=== PATIENT | female | born 1965 | race Caucasian/White ===

== ENCOUNTER → 2016-06-20 | Day surgery (SDC) | payer BC ==
[~2016-06-20] MED LIST: DEXAMETHASONE SOD PHOSPHATE 4 MG/1 ML VIAL ONE; GUM MASTIC/STORAX/MSAL/ALCOHOL 1 DRP DROPSBTL MC ONE; KETOROLAC TROMETHAMINE 30 MG/1 ML VIAL ONE; LIDOCAINE HCL 1%, 10 MG/ML (20ML VIAL) ONE; LIDOCAINE HCL/PF 2% SDV 5ML VIAL ONE; MIDAZOLAM HCL 2 MG/2 ML SINGLE DOSE VIAL ONE; ONDANSETRON 4 MG/2 ML VIAL ONE; PROPOFOL 20 ML ONE; SUCCINYLCHOLINE CHLORIDE 200 MG/10 ML VIAL ONE; ceFAZolin SODIUM 1 GM VIAL ONE; ePHEDrine SULFATE 50 MG/1 ML AMPULE ONE
--- NOTE | 2016-06-23 15:28 | PATH ---
Surgical Pathology Report Patient Name: DAVID [facility]ROY[facility]. Rec. #: [id number] /Age/Gender: 1965 (Age: 51) / F Account: [id number] Location: [facility] Taken: 06/20/2016 Received: 06/20/2016 Reported: 06/23/2016 Physicians: Charlene Ruiz M.D. Specimen(s) Received RIGHT BREAST CORE BIOPSY 10:00, 10CM FN Clinical History Ultrasound findings: Probably benign Final Diagnosis BREAST, RIGHT, 10:00, 10 CM FN, CORE BIOPSY: MICROPAPILLARY APOCRINE HYPERPLASIA WITH ATYPIA. Electronically Signed Leslye Salas M.D. Gross Description Received in formalin labeled "right breast biopsy 10:00, 10 cmfn," are 3 evans-yellow, cylindrical portions of fibroadipose tissue ranging from 1.0-1.5 cm in length and averaging 0.2 cm in diameter. The specimens are submitted in toto in one cassette. Time to formalin fixation: 2 minutes Total formalin fixation time: Approximately 8 hours 06/20/2016
== END | disposition home or self-care (01) ==
LOC: FRADUS-SUR 12:50
PROVIDERS: ATTEND Surgery
PROC: 0HBT3ZX Excision of Right Breast, Percutaneous Approach, Diagnostic (ICD-10-PCS; principal; 2016-06-20)
DX: N63 Unspecified lump in breast (principal); N60.91 Unspecified benign mammary dysplasia of right breast; N64.89 Other specified disorders of breast
CPT/HCPCS: 19083; 87899; 88305-TC; A4648; G0206-TC

== ENCOUNTER 2016-08-07 06:04 | Day surgery (SDC) | payer BC ==
--- NOTE | 2016-08-04 11:05 | HP ---
Admitting History and Physical - Primary Care Physician PCP: Rosa Quan - Admission Chief Complaint: Right breast DCIS S/P right breast wide excision 07/17/2016 with positve margins History of Present Illness: 51 year old perimenapausal female S/P right breast wide excison showing DCIS intermediate grade with mutiple positive margins. DCIS extends to anterior and inferior cauterized resection margins and is focally < 1.0 mm from medial margin other margins are > 2 mm from DCIS. Her for rexcision of positive margins. History Source: Patient Limitations to Obtaining History: No Limitations - Past Medical History ...LMP: 04/18/15 Psych: Yes: Anxiety - Past Surgical History Past Surgical History: Yes: Bariatric Surgery (gastric sleeve 12/2012), Cholecystectomy (06/2015), Tubal Ligation (07/2001) Additional Past Surgical History: Right breast wide excision for atypia 07/17/2016. Pathology showed DCIS intermediate grade extended to ant and inferior margin and <1mm medial margin - Smoking History Smoking history: Former smoker Have you smoked in the past 12 months: No If you are a former smoker, when did you quit?: SEVEN YEARS AGO - Alcohol/Substance Use Hx Alcohol Use: No Home Medications - Allergies Allergies/Adverse Reactions: Allergies Allergy/AdvReac Type Severity Reaction Status Date / Time No Known Drug Allergies Allergy Verified 07/17/16 09:58 - Home Medications Home Medications: Ambulatory Orders Alprazolam [Xanax] 1 mg PO HS 07/03/16 Doxepin HCl [Sinequan -] 30 mg PO DAILY 07/03/16 Escitalopram Oxalate [Lexapro -] 40 mg PO DAILY 07/03/16 Multivit-Min/Iron/Folic/Lutein [Centrum Silver Women Tablet] 1 each PO DAILY Oxycodone HCl/Acetaminophen [Percocet 5-325 mg Tablet -] 1 - 2 tab PO Q6H #30 tablet MDD 6 07/17/16 Family Disease History - Family Disease History Family Disease History: CA: Mother (bladder cancer) Physical Examination Constitutional: Yes: Anxious Breast(s): Yes: Other (Right breat incision healing well no drainage or erythem or seroma) Problem List - Problems (1) Ductal carcinoma in situ (DCIS) of right breast Code(s): D05.11 - INTRADUCTAL CARCINOMA IN SITU OF RIGHT BREAST Assessment/Plan Right breast reexcision
[2016-08-05 11:29] VITALS: BMI 33.6
[2016-08-07] MEDS ORDERED: LIDOCAINE HCL 1%, 10 MG/ML (20ML VIAL) ONE (07:19)
[2016-08-07] MEDS ORDERED: GUM MASTIC/STORAX/MSAL/ALCOHOL 1 DRP DROPSBTL MC ONE (07:19)
[2016-08-07] MEDS ORDERED: oxyCODONE HCL 5 MG TABLET PO PRN (09:04)
[2016-08-07] MEDS ORDERED: PROMETHAZINE HCL 25 MG/1 ML VIAL IVPUSH PRN (09:04)
[2016-08-07] MEDS ORDERED: LACTATED RINGERS SOLUTION 1,000 ML IV SCH (09:15)
[2016-08-07] MEDS ORDERED: KETOROLAC TROMETHAMINE 30 MG/1 ML VIAL IVPUSH PRN (09:23)
[2016-08-07] MEDS ORDERED: ONDANSETRON 4 MG/2 ML VIAL IVPB PRN (09:23)
[2016-08-07] MEDS ORDERED: DEXTROSE 5%-0.45% SALINE 1,000 ML IV SCH (09:30)
[2016-08-07 10:54] VITALS: TEMP 98.2
[2016-08-07 11:34] VITALS: BP 116/65; PULSE 80
[2016-08-07] MEDS ORDERED: ONDANSETRON 4 MG/2 ML VIAL IVPUSH PRN (11:37)
--- NOTE | 2016-08-11 12:54 | PATH ---
Surgical Pathology Report Patient Name: DAVID ARROYO [facility]. Rec. #: [id number] /Age/Gender: 1965 (Age: 51) / F Account: [id number] Location: [facility] Taken: 08/07/2016 Received: 08/07/2016 Reported: 08/11/2016 Physicians: Rosa Quan M.D. Specimen(s) Received A: RIGHT BREAST INFERIOR MARGIN B: RIGHT BREAST MEDIAL MARGIN C: RIGHT BREAST ANTERIOR MARGIN Clinical History DCIS Final Diagnosis A. BREAST, RIGHT, INFERIOR MARGIN, RE-EXCISION: BENIGN BREAST TISSUE SHOWING PRIOR BIOPSY SITE CHANGES. NO RESIDUAL DUCTAL CARCINOMA IN SITU (DCIS) IS IDENTIFIED. B. BREAST, RIGHT, MEDIAL MARGIN, RE-EXCISION: FOCAL RESIDUAL DUCTAL CARCINOMA IN SITU (DCIS), INTERMEDIATE NUCLEAR GRADE. DCIS IS PRESENT IN TWO OF EIGHT SLIDES (2/8). THE NEW MARGIN IS UNINVOLVED BY DCIS; DCIS IS FOCALLY AT 1 MM FROM THE FINAL NEW MARGIN. C. BREAST, RIGHT, ANTERIOR MARGIN, EXCISION: EXTENSIVE RESIDUAL DUCTAL CARCINOMA IN SITU (DCIS), INTERMEDIATE NUCLEAR GRADE. DCIS IS PRESENT IN SIX OF SEVEN SLIDES (6/7). DCIS IS CLOSE TO (< 1 MM) THE FINAL NEW MARGIN AT A FEW FOCI. Electronically Signed Leslye Salas M.D. Gross Description A. Received in formalin labeled "right breast inferior margin," is a 4.3 x 2.5 x 1.2 cm irregular portion of fibroadipose tissue with a suture marking the final margin, per the surgeon. The final margin is inked green and the specimen is serially sectioned. The specimen is entirely and sequentially submitted in 6 cassettes. B. Received in formalin labeled "right breast medial margin," is a 6.2 x 3.8 x 1.1 cm irregular portion of fibroadipose tissue with a suture marking the final margin, per the surgeon. The final margin is inked green and the specimen is serially sectioned. The specimen is entirely submitted in 8 cassettes. C. Received in formalin labeled "right breast anterior margin," is a 4.4 x 3.3 x 0.8 cm irregular portion of fibroadipose tissue with a suture marking the final margin, per the surgeon. The final margin is inked green and the specimen is serially sectioned. The specimen is entirely and sequentially submitted in 7 cassettes. Time to formalin fixation: 3 minutes Total formalin fixation time: Approximately 33 hours. 08/08/2016 saudi08/08/2016
--- NOTE | 2016-08-28 20:17 | OP ---
DATE OF OPERATION: 08/07/2016 PREOPERATIVE DIAGNOSIS: Right breast ductal carcinoma in situ. POSTOPERATIVE DIAGNOSIS: Right breast ductal carcinoma in situ. PROCEDURE: Reexcision of positive margins. SURGEON: Courtney Quan MD ANESTHESIA: General. ANESTHESIOLOGIST: SPECIMENS: 1. Anterior margin. 2. Inferior margin. 3. Medial margin. DRAINS: None. ESTIMATED BLOOD LOSS: Minimal. INDICATION FOR PROCEDURE: The patient is a 51-year-old woman who had a right breast biopsy, which showed atypia. She was taken to the operating room on July 17, 2016, where she underwent wide excision. Pathology showed DCIS with positive anterior and inferior margins and a close medial margin. After discussion, she opted for reexcision of the margins with the understanding that, if the margins continued to be positive, she would need a mastectomy. The procedure, risks, and complications were discussed with her prior to surgery. PROCEDURE: The patient was identified in the holding area. Informed consent was obtained. The right breast was identified with a marker. She was taken to the operating room and placed on the operating table in the supine position. Sequential compression devices were placed on both legs. She received antibiotics prior to surgery. She was intubated. The right breast was prepped and draped in the usual fashion. The previous incision was opened with a scalpel. The previous biopsy cavity was exposed. A clamp was used to grasp tissue from the anterior margin. This tissue was removed and labeled with a stitch at the biopsy cavity side. Specimens were also taken from the inferior margin and from the medial margin. They were all labeled with a stitch at the biopsy cavity side. They were placed in formalin and sent to Pathology for further examination. The wound was irrigated and inspected for hemostasis. Once hemostasis was achieved, the wound was closed. The deep tissue was closed with interrupted sutures of 3-0 Vicryl. The dermis was closed with interrupted sutures of 3-0 Vicryl. The skin was closed with a running subcuticular closure of 4-0 Monocryl. The wound was cleaned and dressed with a sterile dressing. The patient was awakened and taken to recovery area in satisfactory condition. At the end of the procedure, all sponge, laparotomy, and instrument counts were correct. COURTNEY QUAN M.D. [id number]
== END 2016-08-07 11:20 | disposition home or self-care (01) ==
LOC: FASU 06:04
PROVIDERS: ATTEND Surgery
PROC: 0HBT0ZZ Excision of Right Breast, Open Approach (ICD-10-PCS; principal; 2016-08-07 08:26)
DX: D05.11 Intraductal carcinoma in situ of right breast (principal); F41.9 Anxiety disorder, unspecified; Z87.891 Personal history of nicotine dependence; Z98.84 Bariatric surgery status
CPT/HCPCS: 84703; 88307-TC; 94760

== ENCOUNTER 2016-09-19 08:00 | Inpatient (IN) | payer BC ==
--- NOTE | 2016-10-02 13:34 | HP ---
Admitting History and Physical - Primary Care Physician PCP: Rosa Quan - Admission Chief Complaint: right breast cancer History of Present Illness: 51 yo female underwent a right 10 oclock core bx on 06/2016 which was c/w atypia. Patient then underwent a wide excision of this lesion which was noted to be DCIS with positive margins (07/17/2016). Patient underwent a reexcison of positive margins (08/07) but the final path was c/w extensive DCIS. Patient is now presenting for right mastectomy with snbx, possible andx and MARIA FERNANDA reconstruction. History Source: Patient Limitations to Obtaining History: No Limitations - Past Medical History ...LMP: 04/18/15 Psych: Yes: Anxiety - Past Surgical History Past Surgical History: Yes: Bariatric Surgery (gastric sleeve 12/2012), Cholecystectomy (06/2015), Tubal Ligation (07/2001) - Smoking History Smoking history: Former smoker Have you smoked in the past 12 months: No If you are a former smoker, when did you quit?: SEVEN YEARS AGO - Alcohol/Substance Use Hx Alcohol Use: No Home Medications - Allergies Allergies/Adverse Reactions: Allergies Allergy/AdvReac Type Severity Reaction Status Date / Time No Known Drug Allergies Allergy Verified 07/17/16 09:58 - Home Medications Home Medications: Ambulatory Orders Doxepin HCl [Sinequan -] 30 mg PO DAILY 07/03/16 Escitalopram Oxalate [Lexapro -] 40 mg PO DAILY 07/03/16 Oxycodone HCl/Acetaminophen [Percocet 5-325 mg Tablet] 1 - 2 tab PO Q6H PRN #30 tab MDD 6 08/07/16 Family Disease History - Family Disease History Family Disease History: CA: Mother (bladder cancer) Review of Systems - Review of Systems Constitutional: reports: No Symptoms Cardiovascular: reports: No Symptoms Physical Examination Constitutional: Yes: Well Nourished, Calm (right breast incision clean without discharge or erythema) Assessment/Plan Assessment Right breast cancer Plan right mastectomy with snbx, lymphoscintogram possible andx and MARIA FERNANDA
--- NOTE | 2016-10-02 13:51 | HP ---
History & Physical Update - History History: Change (see notes) (Patient has opted to undergo a bilateral mastectomy with MARIA FERNANDA reconstruction, right snbx, possible andx with lympho) - Plan Plan: No Change (bilateral mastectomy with MARIA FERNANDA reconstruction, right snbx, possible andx with lympho)
[2016-10-07 09:50] VITALS: BMI 33.6
[2016-10-08] MEDS ORDERED: BUPIVACAINE HCL/PF 0.25% (2.5MG/ML) 10 ML VIAL ONE (07:07)
[2016-10-08] MEDS ORDERED: HEPARIN NA (PORCINE) 5,000 UNITS/ML 1ML VIAL ONE (07:07)
[2016-10-08] MEDS ORDERED: LIDOCAINE HCL 4% PRESERVE-FREE 5 ML AMP ONE (07:08)
[2016-10-08] MEDS ORDERED: DESFLURANE GAS 240 ML BOTTLE IH ONE (07:19)
[2016-10-08] MEDS ORDERED: ROCURONIUM BROMIDE 50 MG/5 ML VIAL ONE ×4 (08:03→13:04)
[2016-10-08] MEDS ORDERED: SUCCINYLCHOLINE CHLORIDE 200 MG/10 ML VIAL ONE (08:03)
[2016-10-08] MEDS ORDERED: ePHEDrine SULFATE 50 MG/1 ML AMPULE ONE ×2 (08:03→17:13)
[2016-10-08] MEDS ORDERED: PROPOFOL 20 ML ONE ×8 (08:03→17:29)
[2016-10-08] MEDS ORDERED: MIDAZOLAM HCL 2 MG/2 ML SINGLE DOSE VIAL ONE ×3 (08:03→19:33)
[2016-10-08] MEDS ORDERED: SCOPOLAMINE HYDROBROMIDE 1 PATCH PATCH.TD72 ONE (08:07)
[2016-10-08] MEDS ORDERED: HEPARIN NA (PORCINE) 5,000 UNITS/ML 1ML VIAL SQ ONE (08:25)
[2016-10-08] MEDS ORDERED: ceFAZolin SODIUM 1 GM VIAL IVPB ONE ×2 (08:31→16:30)
[2016-10-08] MEDS ORDERED: LIDOCAINE HCL 4% PRESERVE-FREE 5 ML AMP NR ONE (10:25)
[2016-10-08] MEDS ORDERED: ceFAZolin SODIUM 1 GM VIAL ONE ×2 (12:08→16:41)
[2016-10-08] MEDS ORDERED: BUPIVACAINE HCL/PF 0.25% (2.5MG/ML) 10 ML VIAL IJ ONE ×3 (17:00)
[2016-10-08] MEDS ORDERED: LIDOCAINE HCL 2% 100 MG/5 ML DISP.SYRIN ONE (17:08)
[2016-10-08] MEDS ORDERED: CALCIUM CHLORIDE 1 GM/10 ML *DISP.SYRIN ONE (17:13)
[2016-10-08] MEDS ORDERED: NEOSTIGMINE METHYLSULFATE 0.5 MG/ML - 10 ML MDV ONE (17:27)
[2016-10-08] MEDS ORDERED: ONDANSETRON 4 MG/2 ML VIAL ONE (17:27)
[2016-10-08] MEDS ORDERED: GLYCOPYRROLATE 0.2 MG/1 ML VIAL ONE (17:27)
[2016-10-08] MEDS ORDERED: ESMOLOL HCL 10 ML ONE (17:33)
[2016-10-08] MEDS ORDERED: BACITRACIN 30 GM TUBE TOPICAL OINTMENT ONE (17:49)
[2016-10-08] MEDS ORDERED: ONDANSETRON 4 MG/2 ML VIAL IVPUSH PRN (18:12)
[2016-10-08] MEDS ORDERED: METOCLOPRAMIDE HCL INJECTION 10 MG/2 ML VIAL IVPB PRN (18:12)
[2016-10-08] MEDS ORDERED: PROCHLORPERAZINE MALEATE 25 MG SUPP.RECT PR PRN (18:12)
[2016-10-08] MEDS ORDERED: ZOLPIDEM TARTRATE 5 MG TABLET PO PRN (18:12)
[2016-10-08] MEDS ORDERED: D5-1/2NS+10 MEQ KCL - 1,000 ML IV SCH (18:15)
[2016-10-08] MEDS ORDERED: PROMETHAZINE HCL 25 MG/1 ML VIAL IVPUSH PRN (18:17)
[2016-10-08] MEDS ORDERED: MEPERIDINE HCL CARPU-JECT 25 MG/1 ML DISP.SYRIN IVPUSH PRN (18:21)
--- NOTE | 2016-10-08 18:28 | OP ---
Operative Note - Note: Operative Date: 10/08/16 Pre-Operative Diagnosis: bilateral absence of breasts Operation: Bilateral MARIA FERNANDA flap reconstruction of breasts Implants: none Surgeon: Michael Yu Race Steward: Madhu Aguilar Anesthesia: General Estimated Blood Loss (mls): 400 Drains & Tubes with Location: ELINA x 4
[2016-10-08] MEDS ORDERED: HYDROmorphone HCL CARPU-JECT 2 MG/1 ML DISP.SYRIN ONE (18:29)
[2016-10-08] MEDS: HYDROmorphone HCL CARPU-JECT 1 MG/1 ML DISP.SYRIN IVPUSH PRN ×4 (18:30→19:00)
[2016-10-08] MEDS ORDERED: LACTATED RINGERS SOLUTION 1,000 ML IV SCH ×2 (18:30→19:45)
[2016-10-08] MEDS ORDERED: HYDROmorphone *PCA* 10MG/50ML DISP.SYRIN PCA SCH (18:30)
[2016-10-08] MEDS ORDERED: HYDROmorphone *PCA* 10MG/50ML DISP.SYRIN PCA ONE (19:15)
[2016-10-08] MEDS ORDERED: LORAZEPAM CARPU-JECT 2 MG/ML DISP.SYRIN IVPUSH PRN (19:32)
--- NOTE | 2016-10-08 19:41 | PN ---
Progress Note (short form) - Note Progress Note: Post op check. Patient remains in recovery room. She is having anxiety and tachycardia with no hypostension. ELINA's all low output and functioning. Flaps are soft, warm, with good color and bilateral audible flow signals. I have reviewed the care with the night nurse. Plan for tachycardia is increase hydration to 150/hr LR, versed with PRN ativan. CRIME SPECIALIST pain control. Bedrest overnight.
--- NOTE | 2016-10-08 19:56 | SURG ---
Surgery Road Engineer Freight Note Road Engineer Freight: Britton Vega PA-C Date of Service: 10/08/16 Diagnosis: DO NOT BILL HER INSURANCE COMPANY. Procedure: Called in to assist surgeon with closure of patient s/p bilateral MARIA FERNANDA flap reconstruction of breasts Time in: 15:00 Time out: 18:50 I was present for the entirety of the operative procedure. For further detail, please refer to operative report. Visit type - Case Type Case Type: Elective Cosmetic Proced
--- NOTE | 2016-10-08 22:07 | CONSULT ---
Consult Consult Specialty:: Pulm/CCM Reason for Consultation:: Tachycardia and hypotension post breast surgery - History of Present Illness Chief Complaint: Anxiety and tachycardia - History Source History Provided By: Patient, Medical Record Limitations to Obtaining History: No Limitations - Past Medical History ...LMP: 04/18/15 Psych: Yes: Anxiety - Past Surgical History Past Surgical History: Yes: Bariatric Surgery (gastric sleeve 12/2012), Cholecystectomy (06/2015), Tubal Ligation (07/2001) - Alcohol/Substance Use Hx Alcohol Use: No - Smoking History Smoking history: Former smoker Have you smoked in the past 12 months: No If you are a former smoker, when did you quit?: SEVEN YEARS AGO Home Medications - Allergies Allergies/Adverse Reactions: Allergies Allergy/AdvReac Type Severity Reaction Status Date / Time No Known Drug Allergies Allergy Verified 10/08/16 06:41 - Home Medications Home Medications: Ambulatory Orders Doxepin HCl [Sinequan -] 30 mg PO HS 07/03/16 Citalopram Hydrobromide [Celexa -] 40 mg PO HS 10/07/16 Family Disease History - Family Disease History Family History: Unremarkable Family Disease History: CA: Mother (bladder cancer) Physical Exam Vital Signs: Vital Signs Temperature 98.7 F 10/08/16 18:06 Pulse Rate 108 H 10/08/16 18:20 Respiratory Rate 16 10/08/16 18:20 Blood Pressure 142/62 10/08/16 18:20 O2 Sat by Pulse Oximetry (%) 97 10/08/16 18:20 Constitutional: Yes: No Distress, Calm Eyes: Yes: PERRL HENT: Yes: Normocephalic Neck: Yes: Trachea Midline Cardiovascular: Yes: Tachycardia Respiratory: Yes: CTA Bilaterally Gastrointestinal: Yes: Soft (non tender) Breast(s): Yes: Other (Bilat breast tissue pink with some ecchymoses) Extremities: Yes: WNL Edema: No Peripheral Pulses WNL: Yes Wound/Incision: Yes: Open to air Neurological: Yes: Oriented (Somnolaent) ...Motor Strength: WNL Psychiatric: Yes: Alert, Oriented Assessment/Plan 51yoW with PMHx of right breast CA s/p rt mastectomy with node biopsy and bilat breast reconstruction. Ccb anxiety and tachycardia Plan: OR-Post-op breast reconstruction with arterial doppler monitoring -NC O2 as needed for o2 sat >95% -Monitor perfusion, skin color of reconstructed areas -IVF -Continue Ativan prn for anxiety -Post-op pain management with JORDAN WORKER
[2016-10-08] MEDS: CITALOPRAM HYDROBROMIDE 20 MG TABLET (FP) PO SCH ×2 (22:27→22:32)
[2016-10-08] MEDS: DOXEPIN HCL 10 MG CAPSULE PO SCH ×2 (22:27→22:32)
[2016-10-09] MEDS ORDERED: CEFAZOLIN (PRE-DOCKED) 50 ML IVPB ONE (01:45)
[2016-10-09] MEDS ORDERED: CEFAZOLIN 1 GM/D5W 50 ML IVPB SCH (02:00)
[2016-10-09 06:01] LABS: MCH 28.5 pg (25.7-33.7); MCHC 33.4 g/dl (32.0-36.0); MEAN CELL VOLUME 85.3 fl (80-96); MEAN PLT VOLUME 9.1 fl (7.5-11.1); PLATELET COUNT 198 K/MM3 (134-434); RDW 13.7 % (11.6-15.6); WHITE BLOOD COUNT 10.6 K/mm3 (4.0-10.0)
[2016-10-09 06:28] LABS: CALCIUM 8.2 mg/dL (8.5-10.1)
[2016-10-09 06:30] LABS: COCKROFT - GAULT 111.911; CREATININE 0.8 mg/dL (0.55-1.02)
[2016-10-09] MEDS ORDERED: hydrOXYzine PAMOATE 50 MG CAPSULE (FP) PO PRN ×2 (08:58)
[2016-10-09] MEDS ORDERED: OXYCODONE/APAP 5/325MG COMBO TABLET PO PRN ×2 (08:58)
[2016-10-09] MEDS ORDERED: ACETAMINOPHEN 325 MG TABLET (FP) PO SCH (09:00)
[2016-10-09] MEDS ORDERED: NORMAL SALINE FLUSH 0.9% 2.5 ML SYRINGE IVPUSH SCH (09:00)
[2016-10-09] MEDS ORDERED: D5-1/2NS+10 MEQ KCL - 1,000 ML IV SCH ×2 (09:00→11:15)
--- NOTE | 2016-10-09 09:14 | PN ---
Progress Note (short form) - Note Progress Note: POD 1 All tissues viable with good color and flow signals VSS AF, tachycardia resolved Good UOP with decker Pain well controled, Ruby PO Plan is for progression to POD 1 monitoring, d/c decker, transfer to telemetry, OOB ambulate, no constrictive bra or abdomina binder. Continue CABLE INSTALLER REPAIRER HELPER for today.
[2016-10-09] MEDS ORDERED: ACETAMINOPHEN 325 MG TABLET (FP) PO PRN (09:29)
[2016-10-09] MEDS ORDERED: oxyCODONE HCL 5 MG TABLET PO PRN (09:29)
[2016-10-09] MEDS ORDERED: hydrOXYzine PAMOATE 25 MG CAPSULE (FP) PO PRN ×2 (09:50)
[2016-10-09] MEDS ORDERED: HEPARIN NA (PORCINE) 5,000 UNITS/ML 1ML VIAL SQ SCH ×2 (10:00)
[2016-10-09] MEDS ORDERED: IBUPROFEN 400 MG TABLET (FP) PO SCH (10:00)
[2016-10-09] MEDS ORDERED: CEFAZOLIN (PRE-DOCKED) 50 ML IVPB SCH (10:00)
[2016-10-09] MEDS ORDERED: DOCUSATE SODIUM 100 MG CAPSULE (FP) PO SCH (10:00)
--- NOTE | 2016-10-09 10:55 | OP ---
Operative Note - Note: Operative Date: 10/08/16 Pre-Operative Diagnosis: incarcerated ventral hernia Operation: repair incarcerated ventral hernia Findings: 1.5 cm. defect in the fascia above the umbilicus w/incarcerated preperitoneal fat Surgeon: Trey Al Healthcare Specialist: Britton Vega Anesthesia: General Specimens Removed: hernia sac and fat Estimated Blood Loss (mls): 0
[2016-10-09] MEDS ORDERED: HYDROmorphone *PCA* 10MG/50ML DISP.SYRIN PCA SCH (11:15)
[2016-10-09] MEDS ORDERED: MEPERIDINE HCL CARPU-JECT 50 MG/1 ML DISP.SYRIN IVPUSH PRN (11:15)
[2016-10-09] MEDS ORDERED: METOCLOPRAMIDE HCL INJECTION 10 MG/2 ML VIAL IVPB PRN (11:15)
[2016-10-09] MEDS ORDERED: PROCHLORPERAZINE MALEATE 25 MG SUPP.RECT PR PRN (11:15)
[2016-10-09] MEDS ORDERED: HYDROmorphone HCL CARPU-JECT 1 MG/1 ML DISP.SYRIN IVPUSH PRN (11:15)
[2016-10-09] MEDS ORDERED: ONDANSETRON 4 MG/2 ML VIAL IVPUSH PRN (11:15)
[2016-10-09] MEDS ORDERED: LORAZEPAM CARPU-JECT 2 MG/ML DISP.SYRIN IVPUSH PRN (11:15)
[2016-10-09] MEDS ORDERED: ZOLPIDEM TARTRATE 5 MG TABLET PO PRN (11:15)
--- NOTE | 2016-10-09 11:17 | OP ---
DATE OF OPERATION: 10/08/2016 PREOPERATIVE DIAGNOSIS: Incarcerated ventral hernia. POSTOPERATIVE DIAGNOSIS: Incarcerated ventral hernia. PROCEDURE: Repair of incarcerated ventral hernia. SURGEON: Trey Al MD AUGER SUPERVISOR: Britton Vega PA-C ANESTHESIA: General. OPERATIVE FINDINGS: I was called to the operating room for intraoperative consultation during the creation of bilateral MARIA FERNANDA flaps for breast reconstruction after bilateral mastectomy, and the patient was found to have a midline incarcerated ventral hernia. My opinion was requested about the hernia and for repair. The defect at the fascia was approximately 1.5 cm, and it contained incarcerated preperitoneal fat. Rest of the findings was unremarkable. DESCRIPTION OF PROCEDURE: With the patient already under general anesthesia, the hernia defect was identified. The sac over the hernia was opened using electrocautery, and the incarcerated preperitoneal fat was excised using electrocautery and sent for pathological examination. The defect was closed with multiple 0 Ti-Cron horizontal mattress sutures. The remainder of the procedure was then continued by the plastic surgeons. ESTIMATED BLOOD LOSS: Minimal. DRAINS: None. SPECIMENS: Hernia sac and preperitoneal fat to Pathology. I, Even Nuvia Al, was physically present from the time I was consulted intraoperatively until the completion of the hernia repair. MD MERLY Boothe/[id number]
--- NOTE | 2016-10-09 11:34 | PN ---
Progress Note (short form) - Note Progress Note: Anesthesia postop note S/P Bilateral mastectomy with MARIA FERNANDA, ventral hernia repair in GETA. LEAKAGE TESTER post op. Pat seen and examined. No apparent post anesthesia complications. VSS. Sitting in chair. No complaints. Not in pain. if she is tolerating op intake, will D/C the LEAKAGE TESTER and convert to PO meds.
--- NOTE | 2016-10-09 13:06 | PN ---
Teaching Attending Note Name of Resident: Michell Draper ATTENDING PHYSICIAN STATEMENT I saw and evaluated the patient. I reviewed the resident's note and discussed the case with the resident. I agree with the resident's findings and plan as documented. SUBJECTIVE: Pt seen and examined in the ICU. c/o pain/soreness at surgical site but no shortness of breath or chest pain. No fevers or chills. c/o generalized itching. OBJECTIVE: Last Vital Signs Temp Pulse Resp BP Pulse Ox 99.8 F H 96 H 21 134/48 98 10/09/16 09:55 10/09/16 09:55 10/09/16 09:55 10/09/16 09:55 10/09/16 09:00 Intake & Output 10/06/16 10/07/16 10/08/16 10/09/16 23:59 23:59 23:59 23:59 Intake Total 5450 1730 Output Total 1501.5 851 Balance 3948.5 879 Weight 190 lb Gen: NAD in chair Heart: RRR Lung: decreased breath sounds at the bases Chest: 2 ELINA drains bilaterally with serosanguinous drainage Abd: soft, nontender Ext: no edema CBC, BMP 10/09/16 05:15 10/09/16 05:15 Active Medications Acetaminophen (Tylenol -) 650 mg PO Q6H PRN PRN Reason: Pain, scale 4 - 6 Acetaminophen (Tylenol -) 325 mg PO Q4H PRN PRN Reason: PAIN 1-3 Stop: 10/12/16 09:28 Acetaminophen (Tylenol -) 975 mg PO Q8H KARRIE Citalopram Hydrobromide (Celexa -) 40 mg PO HS KARRIE Diphenhydramine HCl (Benadryl Injection -) 50 mg IVPB Q6H PRN PRN Reason: FOR ITCHING Last Admin: 10/09/16 12:24 Dose: 50 mg Docusate Sodium (Colace -) 100 mg PO BID KARRIE Doxepin HCl (Sinequan -) 30 mg PO HS KARRIE Heparin Sodium (Porcine) (Heparin -) 5,000 unit SQ BID KARRIE Hydromorphone HCl (Dilaudid Green Energy Marketing Analyst -) 10 mg CONTINUITY COORDINATOR CONTINUITY COORDINATOR KARRIE PRN Reason: Protocol Stop: 10/11/16 18:17 Hydromorphone HCl (Dilaudid Injection -) 0.5 mg IVPUSH [id number] PRN PRN Reason: PAIN Stop: 10/11/16 18:18 Hydroxyzine Pamoate (Vistaril -) 50 mg PO Q4H PRN PRN Reason: NAUSEA Hydroxyzine Pamoate (Vistaril -) 50 mg PO Q6H PRN PRN Reason: NAUSEA Cefazolin Sodium (Ancef 1gm Ivpb (Pre-Docked)) 50 mls @ 100 mls/hr IVPB Q8H-IV KARRIE Potassium Chloride/Dextrose/Sod Cl (D5-1/2ns+10 Meq Kcl -) 1,000 mls @ 100 mls/ hr IV ASDIR KARRIE Stop: 10/10/16 08:59 Last Admin: 10/09/16 12:24 Dose: 100 mls/hr Ibuprofen (Motrin -) 800 mg PO Q8H KARRIE Lorazepam (Ativan Injection -) 0.5 mg IVPUSH BID PRN PRN Reason: ANXIETY Meperidine HCl (Demerol Injection -) 25 mg IVPUSH Q8H PRN PRN Reason: SHIVERING Metoclopramide HCl (Reglan Injection -) 10 mg IVPB Q6H PRN PRN Reason: NAUSEA AND/OR VOMITING Ondansetron HCl (Zofran Injection) 4 mg IVPUSH Q6H PRN PRN Reason: NAUSEA AND/OR VOMITING Oxycodone HCl (Roxicodone -) 10 mg PO Q6H PRN PRN Reason: Pain, scale 4 - 6 Oxycodone HCl (Roxicodone -) 5 mg PO Q4H PRN PRN Reason: PAIN 1-3 Prochlorperazine Maleate (Compazine Suppository -) 25 mg [place] Q12H PRN PRN Reason: NAUSEA AND/OR VOMITING Sodium Chloride (Saline Lock Flush) 2.5 ml IVPUSH Q8H KARRIE Zolpidem Tartrate (Ambien -) 5 mg PO HS PRN PRN Reason: INSOMNIA Stop: 10/11/16 18:12 ASSESSMENT AND PLAN: Breast Cancer s/p Right Mastectomy s/p Bilateral MARIA FERNANDA Flap Breast Reconstruction - pain control - incentive spirometry - benadryl for pruritis - monitor H/H - monitor drain output - DVT prophylaxis - can monitor on floor
--- NOTE | 2016-10-09 14:22 | PN ---
Physical Exam: SUBJECTIVE: Patient seen and examined. She is complaining of pain in her chest especially worse when taking deep breaths. She denies headache, dizziness, weakness, N/V, diarrhea, constipation. OBJECTIVE: Vital Signs Period Temp Pulse Resp BP Sys/Irving Pulse Ox Last 24 Hr 98.7 F-99.8 F 96-125 12-21 103-145/45-90 96-100 GENERAL: The patient is awake, alert, and fully oriented, in no acute distress. HEAD: Normal with no signs of trauma. EYES: extraocular movements intact, sclera anicteric, conjunctiva clear. ENT: oropharynx clear without exudates, moist mucous membranes. NECK: Trachea midline, full range of motion, supple. LUNGS: Breath sounds equal, clear to auscultation bilaterally, no wheezes, no crackles, no accessory muscle use. HEART: Regular rate and rhythm, S1, S2 without murmur, rub or gallop. ABDOMEN: Soft, nontender, nondistended, normoactive bowel sounds, no guarding, no rebound, no hepatosplenomegaly, no masses. EXTREMITIES: 2+ pulses, no edema. NEUROLOGICAL: Normal speech, gait not observed. PSYCH: Normal mood, normal affect. SKIN: Warm, dry, normal turgor, no rashes, surgical scar in breast B/L, healing and draining bloody fluid. Laboratory Results - last 24 hr 10/09/16 10/09/16 05:15 05:15 WBC 10.6 H RBC 3.78 Hgb 10.8 Hct 32.2 L MCV 85.3 MCHC 33.4 RDW 13.7 Plt Count 198 MPV 9.1 Sodium 138 Potassium 4.6 Chloride 105 Carbon Dioxide 29 Anion Gap 4 L BUN 17 D Creatinine 0.8 Random Glucose 128 H Calcium 8.2 L Active Medications Generic Name Dose Route Start Last Admin Trade Name Freq PRN Reason Stop Dose Admin Acetaminophen 650 mg 10/09/16 09:27 Tylenol - PO Q6H PRN Pain, scale 4 - 6 Acetaminophen 325 mg 10/09/16 09:29 Tylenol - PO 10/12/16 09:28 Q4H PRN PAIN 1-3 Acetaminophen 975 mg 10/09/16 17:00 Tylenol - PO Q8H KARRIE Citalopram Hydrobromide 40 mg 10/09/16 22:00 Celexa - PO HS KARRIE Diphenhydramine HCl 50 mg 10/09/16 11:20 10/09/16 12:24 Benadryl Injection - IVPB 50 mg Q6H PRN Administration FOR ITCHING Docusate Sodium 100 mg 10/09/16 22:00 Colace - PO BID KARRIE Doxepin HCl 30 mg 10/09/16 22:00 Sinequan - PO HS KARRIE Heparin Sodium (Porcine) 5,000 unit 10/09/16 22:00 Heparin - SQ BID KARRIE Hydromorphone HCl 10 mg 10/09/16 11:15 Dilaudid Clinical Quality Manager - [employer] 10/11/16 18:17 M[employer] SHE[employer]ER KARRIE Protocol Hydromorphone HCl 0.5 mg 10/09/16 11:15 Dilaudid Injection - IVPUSH 10/11/16 18:18 [id number] PRN PAIN Hydroxyzine Pamoate 50 mg 10/09/16 09:50 Vistaril - PO Q4H PRN NAUSEA Hydroxyzine Pamoate 50 mg 10/09/16 09:50 Vistaril - PO Q6H PRN NAUSEA Cefazolin Sodium 50 mls @ 100 mls/hr 10/09/16 18:00 Ancef 1gm Ivpb (Pre-Docked) IVPB Q8H-IV KARRIE Potassium Chloride/Dextrose/Sod Cl 1,000 mls @ 100 mls/hr 10/09/16 11:15 12:24 D5-1/2ns+10 Meq Kcl - IV 10/10/16 08:59 100 mls/hr ASDIR KARRIE Administration Ibuprofen 800 mg 10/09/16 17:00 Motrin - PO Q8H KARRIE Lorazepam 0.5 mg 10/09/16 11:15 Ativan Injection - IVPUSH BID PRN ANXIETY Meperidine HCl 25 mg 10/09/16 11:15 Demerol Injection - IVPUSH Q8H PRN SHIVERING Metoclopramide HCl 10 mg 10/09/16 11:15 Reglan Injection - IVPB Q6H PRN NAUSEA AND/OR VOMITING Ondansetron HCl 4 mg 10/09/16 11:15 Zofran Injection IVPUSH Q6H PRN NAUSEA AND/OR VOMITING Oxycodone HCl 10 mg 10/09/16 09:27 Roxicodone - PO Q6H PRN Pain, scale 4 - 6 Oxycodone HCl 5 mg 10/09/16 09:29 Roxicodone - PO Q4H PRN PAIN 1-3 Prochlorperazine Maleate 25 mg 10/09/16 11:15 Compazine Suppository - [place] Q12H PRN NAUSEA AND/OR VOMITING Sodium Chloride 2.5 ml 10/09/16 17:00 Saline Lock Flush IVPUSH Q8H KARRIE Zolpidem Tartrate 5 mg 10/09/16 11:15 Ambien - PO 10/11/16 18:12 HS PRN INSOMNIA ASSESSMENT/PLAN: 51yoW with PMHx of right breast CA s/p right mastectomy with node biopsy and bilateral breast reconstruction. Ccb anxiety and tachycardia. S/P mastectomy: POD#1 NC O2 as needed for o2 sat >95% monitor perfusion, skin color of reconstructed areas cont IVF Continue Ativan prn for anxiety Post-op pain management with [employer] DVT PPX: -SCDs Disposition: the pt will be transferred to med surg Problem List - Problems (1) Atypical hyperplasia of right breast Code(s): N62 - HYPERTROPHY OF BREAST (2) Ductal carcinoma in situ (DCIS) of right breast Code(s): D05.11 - INTRADUCTAL CARCINOMA IN SITU OF RIGHT BREAST Visit type - Emergency Visit Emergency Visit: Yes ED Registration Date: 10/08/16 Care time: The patient presented to the Emergency Department on the above date and was hospitalized for further evaluation of their emergent condition. - New Patient This patient is new to me today: Yes Date on this admission: 10/09/16 - Critical Care Critical Care patient: Yes Total Critical Care Time (in minutes): 40 Critical Care Statement: The care of this patient involved high complexity decision making to prevent further life threatening deterioration of the patient 's condition and/or to evalute & treat vital organ system(s) failure or risk of failure.
[2016-10-09] MEDS ORDERED: ALPRAZolam 0.25 MG TABLET PO ONE (15:57)
[2016-10-09] MEDS: ACETAMINOPHEN 325 MG TABLET (FP) PO SCH (16:08)
[2016-10-09] MEDS: CEFAZOLIN (PRE-DOCKED) 50 ML IVPB SCH (17:49)
[2016-10-09] MEDS: NORMAL SALINE FLUSH 0.9% 2.5 ML SYRINGE IVPUSH SCH (20:15)
[2016-10-09] MEDS: IBUPROFEN 400 MG TABLET (FP) PO SCH (20:45)
[2016-10-09] MEDS ORDERED: IBUPROFEN 600 MG TABLET (FP) PO ONE (20:45)
[2016-10-09] MEDS ORDERED: PT OWN MED DRAWER 7, Y5N ONE (21:27)
[2016-10-09] MEDS: HEPARIN NA (PORCINE) 5,000 UNITS/ML 1ML VIAL SQ SCH (22:15)
[2016-10-09] MEDS: CITALOPRAM HYDROBROMIDE 20 MG TABLET (FP) PO SCH (22:15)
[2016-10-09] MEDS: DOXEPIN HCL 10 MG CAPSULE PO SCH (22:16)
[2016-10-09] MEDS: DOCUSATE SODIUM 100 MG CAPSULE (FP) PO SCH (22:16)
[2016-10-10] MEDS: IBUPROFEN 400 MG TABLET (FP) PO SCH ×3 (00:55→17:25)
[2016-10-10] MEDS: ACETAMINOPHEN 325 MG TABLET (FP) PO SCH ×3 (00:55→16:18)
[2016-10-10] MEDS: CEFAZOLIN (PRE-DOCKED) 50 ML IVPB SCH ×3 (02:36→17:49)
[2016-10-10] MEDS: NORMAL SALINE FLUSH 0.9% 2.5 ML SYRINGE IVPUSH SCH ×3 (02:37→17:49)
[2016-10-10] MEDS ORDERED: PT OWN MED DRAWER 7, Y5N ONE ×4 (05:41→21:57)
[2016-10-10 06:06] LABS: MCH 28.4 pg (25.7-33.7); MCHC 33.1 g/dl (32.0-36.0); MEAN CELL VOLUME 85.7 fl (80-96); MEAN PLT VOLUME 9.3 fl (7.5-11.1); PLATELET COUNT 183 K/MM3 (134-434); RDW 13.6 % (11.6-15.6); WHITE BLOOD COUNT 10.9 K/mm3 (4.0-10.0)
[2016-10-10 06:42] LABS: CALCIUM 8.2 mg/dL (8.5-10.1); COCKROFT - GAULT 99.4755; CREATININE 0.9 mg/dL (0.55-1.02)
--- NOTE | 2016-10-10 07:39 | PN ---
Progress Note (short form) - Note Progress Note: VSS AF Tissues all viable with good color and flow signals ELINA thin and functioning c/o headaches, but is not eating and refusing pain meds, instructed to eat and combine percocet ad motrin for pain/headache Ambulating Requiring o2 by nc, will try to wean today and plan for discharge tomorrow.
[2016-10-10] MEDS: DOCUSATE SODIUM 100 MG CAPSULE (FP) PO SCH ×2 (09:09→21:53)
[2016-10-10] MEDS: HEPARIN NA (PORCINE) 5,000 UNITS/ML 1ML VIAL SQ SCH ×2 (09:13→21:53)
[2016-10-10] MEDS: CALCIUM CARBONATE 650 MG TABLET PO SCH (09:59)
--- NOTE | 2016-10-10 12:16 | OP ---
DICTATION STARTS HERE The procedure then continued with the right mastectomy. An elliptical incision was made around the areola and extended at 6 o'clock using a scalpel. The skin was grasped with clamps and skin flaps were then raised. A flap was raised superiorly towards the clavicle. The flap was extended medially towards the sternum, inferiorly towards the junction with the abdominal musculature, and laterally towards the axilla. The breast was then removed along with the underlying pectoralis major fascia. The breast was labeled with silk sutures with a long stitch laterally and a short stitch superiorly and placed in formalin. The right axillary sentinel node biopsy was performed by identifying an area of high counts through the skin with the probe and then making an incision in this area. The incision was deepened and dissection into the axillary fat did not show any uptake of the blue dye. However, a firm lymph node was entered, which did not show high counts. This was sent as a permanent specimen. Further dissection revealed a firm node, which was removed and exhibited high counts. Frozen section showed no evidence of metastatic disease. The specimen was sent in formalin for further evaluation. The left mastectomy was performed by Dr. Meyer. The periareolar incision with an extension inferiorly at 6 o'clock was made as in the right breast. Superior, medial, inferior, and lateral flaps were raised as described previously. The breast was removed along with the underlying pectoralis major fascia. The specimen was sent to pathology for permanent section. Both wounds were irrigated and inspected for hemostasis. Once hemostasis was satisfactory, the procedure was turned over to the plastic surgeons to complete the reconstruction. The reconstruction will be dictated as a separate procedure. NILS ART M.D. [id number]
[2016-10-10] MEDS: oxyCODONE HCL 5 MG TABLET PO PRN ×2 (13:58→21:52)
[2016-10-10] MEDS: ACETAMINOPHEN 325 MG TABLET (FP) PO PRN ×2 (14:00→21:52)
[2016-10-10] MEDS: DOXEPIN HCL 10 MG CAPSULE PO SCH (21:51)
[2016-10-10] MEDS: CITALOPRAM HYDROBROMIDE 20 MG TABLET (FP) PO SCH (21:52)
[2016-10-11] MEDS: ACETAMINOPHEN 325 MG TABLET (FP) PO SCH ×2 (02:28→09:46)
[2016-10-11] MEDS: IBUPROFEN 400 MG TABLET (FP) PO SCH ×2 (02:28→09:47)
[2016-10-11] MEDS: CEFAZOLIN (PRE-DOCKED) 50 ML IVPB SCH ×2 (02:35→09:46)
[2016-10-11] MEDS: NORMAL SALINE FLUSH 0.9% 2.5 ML SYRINGE IVPUSH SCH ×2 (02:36→09:46)
[2016-10-11] MEDS: oxyCODONE HCL 5 MG TABLET PO PRN (09:44)
[2016-10-11] MEDS: ACETAMINOPHEN 325 MG TABLET (FP) PO PRN (09:45)
[2016-10-11] MEDS: CALCIUM CARBONATE 650 MG TABLET PO SCH (09:47)
[2016-10-11] MEDS: HEPARIN NA (PORCINE) 5,000 UNITS/ML 1ML VIAL SQ SCH (09:47)
[2016-10-11] MEDS: DOCUSATE SODIUM 100 MG CAPSULE (FP) PO SCH (09:52)
[2016-10-11 12:00] VITALS: BP 144/78; PULSE 99; TEMP 99.9
--- NOTE | 2016-10-11 12:42 | PN ---
Progress Note (short form) - Note Progress Note: POD 3 VSS AF, O2 saturation 94 on room air. Asymptomatic and comfortable. Flaps viable with good arterial flow signals and skin paddle color. Right mastectomy flap with inframedial ischemia- will treat with bacitracin/ Telfa dressing changes BID Ambulating, deepthi PO. Doppler wires cut. Patient ok for discharge with drain care and follow up in 5 days.
--- NOTE | 2016-10-11 17:01 | OP ---
DATE OF OPERATION: 10/08/2016 The procedure is performed as a co-surgeon with Dr. Madhu Aguilar. The procedure is performed as a combination with bilateral mastectomies with a left-sided sentinel lymph node biopsy performed by Dr. Meyer and Dr. Quan. (That portion of the procedure will be dictated by Dr. Meyer and Dr. Quan. ) PROCEDURES PERFORMED: 1. Bilateral breast reconstruction with deep inferior epigastric flake drier artery flaps. 2. Bilateral third rib resection. 3. Bilateral dissection and ligation of superficial inferior epigastric veins. 4. Bilateral intercostal nerve block for postoperative pain relief. 5. Bilateral transversus abdominis pain block for postoperative pain relief. 6. 3-cm complex left axillary wound closure from sentinel lymph node biopsy. PREOPERATIVE DIAGNOSIS: Left breast cancer. POSTOPERATIVE DIAGNOSIS: 1. Left breast cancer 2. Acquired absence of bilateral breasts. ATTENDING SURGEON: Michael Yu MD CO-SURGEON: Madhu Aguilar MD PAYLOADER OPERATOR: TAVO Han ANESTHESIA: General endotracheal anesthesia ESTIMATED BLOOD LOSS FOR THE CASE: 400 mL DESCRIPTION OF THE PROCEDURE: The patient was seen in the holding area. The patient had been evaluated in consult by Dr. Quan and her surgical oncologic team for mastectomy and style of mastectomy after which Dr. Aguilar and I evaluated the patient and marked the patient for microvascular breast reconstruction using abdominal tissue. Patient is awake and aware of incisions and all resulting scars. The abdominal donor site was marked in accordance with a pre-performed MRA to identify the planned perforating vessels for the flaps. Patient was then brought into the operating room, placed in a supine position. RAYN stockings were applied bilaterally. Sequential compression devices were applied bilaterally. The patient was given 5000 units of subcutaneous heparin preoperatively. The patient received a gram of Ancef preoperatively, which was then re-dosed at 6-hour intervals. All pressure points were carefully padded and were checked by surgical and anesthesia teams. Patient was then prepped and draped in a standard surgical fashion. A timeout was called with both oncologic, surgical and plastic surgical teams present. Patient, procedure and side sites were all verified. At this point, the surgeons performed the mastectomies while flap elevation on the abdomen was performed simultaneously. At the abdomen, the previously marked ellipse of tissue from just above the umbilicus down to the pubic hairline, incision was made using a 15-blade scalpel. Dissection was carried down through the subcutaneous tissues using electrocautery, bevelling away from the flap in order to increase the volume of the flap. At the right side, 4 cm off the midline, the superficial inferior epigastric artery and vein were identified and meticulously dissected from all surrounding tissue and traced down to the origin in the groin where they were ligated and divided and kept in continuity with the flap in case they were needed later in the surgery for additional inflow or outflow to the flap. At the left side, the superficial inferior epigastric artery and vein were identified using microsurgical technique. They were meticulously dissected down to their origin in the groin where they were ligated and divided. They were kept in continuity with the left deep inferior epigastric flake drier flap in case they were needed later in the case for additional inflow or outflow to the flap. Attention was first paid to harvest the right deep inferior epigastric flake drier flap. The right MARIA FERNANDA flap was elevated in the [id number] direction using electrocautery until the lateral edge of the rectus abdominis sheath was encountered. At this point, meticulous dissection was continued using bi-polar cautery, and the dominant perforators to this side were identified preoperatively on the MRA, were identified and preserved and kept in continuity with the flap. The anterior rectus fascia was then incised in a superior and inferior direction, and a small cuff of fascia less than 1 cm was kept in continuity with the flake drier and freed from the surrounding tissue. The rectus muscle was atraumatically split in line with its longitudinal fibers, and the flake drier was followed down through the rectus muscle to the lateral main branch of the deep inferior epigastric artery. The perforators were kept in continuity with the flap and dissected in this technique. The main pedicle was then traced back to its origin in the groin where all small branches along the way were clipped and divided in the groin. The takeoff of the deep inferior epigastric artery and vein were identified on the right side. There was noted to be 1 large deep inferior epigastric artery and 2 accompanying large venae comitantes. A single green Acland clamp was applied to the pedicle. Medium atraumatic clamps were placed around the deep inferior epigastric artery and two accompanying veins. They were then divided . The flap was weighed to be 1400 gm. Simultaneously, the left chest exposure of the internal mammary artery and vein were performed. The mastectomy pocket was thoroughly irrigated. All points of bleeding were stopped with electrocautery. The pectoralis major muscle was then divided in line with the longitudinal fibers overlying the 3rd rib. Gelpi retractors were placed for exposure, and the 3rd rib was scored using electrocautery, and the perichondrium surrounding the cartilaginous portion of the 3rd rib was elevated using a periosteal elevator. Then, a 2-cm cartilaginous portion of the rib was removed using a double-action rongeur, and under loupe magnification, the posterior perichondrium was elevated using the same microsurgical technique and bipolar cautery. Meticulous dissection was performed, and the internal mammary artery and vein were identified. The internal mammary artery and vein were freed of surrounding tissue for a total length of 3 cm in order to allow microsurgical anastomosis. The operating microscope was then brought into position on the left side. The right deep inferior epigastric flap was rotated 180 degrees. It was then placed at the right chest. It was secured in position using a 2-0 Vicryl suture for temporary securing, and the pedicle was placed in alignment with the internal mammary artery and vein, and they were traced down to their origin in the groin where they were ligated and divided and kept in continuity with the flap, in case they were needed later in the flap for additional inflow or outflow to the flap. Under the operating microscope, the internal mammary vein had a single green clip applied proximally and a single green clip applied distally. It was divided in the middle of the vein. The lumen was irrigated and measured. It was noted that a 3-mm client associate device would fit well upon the internal mammary vein. The two veins of the flap pedicle were measured, and it was noted that a 2.5-mm client associate would fit on one of the vessels and the other vessel would accommodate a 3-mm client associate. The coupling device was loaded with a 3-mm client associate, which was lowered into the operative field under the operating microscope. The anterior grade vein was brought up through the coupling device. It was everted over the coupling spikes. It was then secured in position using the J-hole, forceps. The lumen was irrigated with heparinized saline solution, and the client associate was lowered adjacent to the anterior grade portion of the internal mammary vein, which was then brought up through the coupling device, everted over the coupling spikes and secured in position using the J-hole, then irrigated with heparinized saline solution. It was noted to be in good position and free of debris. The client associate was closed, creating a secured couple anastomosis. The green clamp was removed, and there was noted to be excellent flow across the anastomosis. Attention was then paid to the retrograde vein. The second vein of the pedicle was then brought up through the 2.5-mm client associate. It was everted over the coupling spikes and was secured in position using the J-hole. The client associate was then lowered adjacent to the retrograde internal mammary vein, the cut end of which was brought up through the coupling device, everted over the coupling spikes and secured in position using a J-hole. The lumens were irrigated and noted to be free of debris and in good position. The client associate was then closed and secured. A couple anastomosis was performed. The single green clamp was removed, and there was noted to be excellent flow across the anastomosis. Attention was then paid to the arterial anastomosis. The pedicled artery was placed in alignment with the internal mammary artery. The internal mammary artery had a single green clamp applied proximally, and the medium atraumatic clamp clip applied distally, and it was divided. The lumen was irrigated and noted to be free of debris and healthy in appearance. The artery of the flap pedicle was then placed in alignment with the internal mammary artery, and a hand-sewn anastomosis was performed. 8-0 nylon was used in an interrupted fashion. The single green clamp was then removed from the artery, and there was noted to be excellent flow across the anastomosis. The pedicle was interrogated with a hand-held Doppler, and there was noted to be pulsatile flow. The flow had a strong biphasic sound. Using the hand-held Doppler, there was noted to be good flow. At this point, an implantable Doppler was placed for monitoring on the flap postoperatively. Using the Jefferson dissector, a small window was created in the pedicle of the artery. The cuff of the implantable Doppler was passed around this. It was secured in position using micro-clips and hooks to the Doppler box where there was noted to be a strong bounding signal within the pedicle artery. This was left attached to the Doppler box and monitored throughout the entirety of the rest of the case, and there was excellent flow throughout the rest of the case. The operating microscope was removed. The flap was gently was gently placed within the mastectomy pocket while monitoring the entire time. There was noted to be excellent shape to the flap, and the skin was temporarily closed using skin alfredo. Attention was then paid to the contralateral side. At the left abdomen, the deep inferior epigastric flake drier flap was elevated in the [id number] direction using electrocautery until the lateral free edge of the rectus was encountered, then with loupe magnification, two dominant perforators were identified as were seen on the MRA. They were circumferentially freed. An incision was made in the anterior rectus fascia in a [id number] direction. A small cuff of fascia was kept adherent to the perforators approximately 1 cm in size. The perforators were then followed down to the rectus muscle, freeing all small branches. As necessary, the rectus muscle was atraumatically split using Gelpi retractors. The perforators were traced down to the left anterior- inferior epigastric artery pedicle. The pedicle was then traced down to its origin in the groin, clipping and dividing all small branches, as necessary. At the groin, there was noted to be 1 large artery and 2 large veins. These were clipped with medium atraumatic clip shirt cleaner and divided. The flap was weighed and noted to be 1400 gm. Simultaneous to this, dissection at the right chest exposure to the internal mammary artery and vein was performed. The mastectomy pocket was irrigated. All points of bleeding were stopped with electrocautery. The pectoralis major muscle was divided overlying the 3rd rib in line with the longitudinal fibers. The underlying 3rd rib was exposed. The perichondrium was scored using electrocautery and freed using a periosteal elevator. Then, a 2 cm cartilaginous portion of the rib was resected using a large rongeur. Under loupe magnification, the posterior perichondrium was elevated, and the internal mammary artery and vein were identified. Small branches were divided, and the internal mammary artery and vein were exposed for a length of 3 cm in order to allow surgical anastomosis. The left deep inferior epigastric flake drier flap was then rotated 180 degrees. It was placed at the left chest and temporally secured in position using 2-0 Vicryl sutures. The pedicle of the flap was placed in alignment with the internal mammary artery and vein. The operating microscope was brought into position. Under the operating microscope, attention was then first paid to the venous anastomosis of the internal mammary vein, and a clip applied distally and a green clamp applied proximally. It was then divided. The lumen was measured to be 3 mm. The pedicle was measured to also be 3 mm. A coupling device was loaded with the 3-mm client associate. It was lowered into the operative field under the operating microscope. The cut end of the pedicle vein was then brought through the client associate, everted over the coupling spike, secured in position using the J-hole. The lumen was then irrigated with heparinized saline and heparinized saline solution. It was noted to be in good position and free of debris. The client associate was then lowered adjacent to the internal mammary vein. The antegrade portion of the cut end was brought up and through the coupling device, everted over the coupling spikes, secured in position using the J-hole and irrigated with heparinized saline, and noted to be free of debris and in good position. The client associate was then closed, creating a secured couple anastomosis. The green clamp was removed, and there was noted to be excellent flow across the venous anastomosis. Attention was then paid to the retrograde venous anastomosis where the coupling device was then lowered into the field loaded with a 2.5-mm client associate. The smaller vein of the pedicle was then brought through the coupling device and everted over the coupling spikes. The retrograde internal mammary vein was then brought through the other side of the coupling device, everted over the coupling spikes. The coupling device was then brought together. A secure couple anastomosis was achieved. The green clamp was removed, and good flow through the venous anastomosis was shown. Attention was then paid to the arterial anastomosis, and the internal mammary artery had a medium clip applied, the distal end of a single green Acland clamp applied proximally. It was then divided. The lumen was irrigated and noted to be free of debris and healthy in appearance. The pedicled artery was placed in alignment with the internal mammary artery, and a hand-sewn anastomosis was performed using 8-0 nylon suture in interrupted fashion. After completion of the hand-sewn anastomosis, the green clamp was removed, and there was noted to be excellent strong pulsatile flow across the arterial anastomosis in a bounding pedicle. The pedicle was interrogated using a hand-held Doppler, was noted to have strong, healthy pulsatile flow. The implantable Doppler was then placed. A [employer] dissector was used to create a window in the pedicle, and the [employer] implantable Doppler cuff was then passed around and secured in position using micro-clips. The Doppler was hooked to the Doppler box and noted to have a strong, pulsatile flow. This was monitored through the entirety of the rest of the case. Operating microscope was then removed from the field. The flap was gently placed within the mastectomy cavity. The skin incisions were temporarily closed with skin alfredo, and there was noted to be excellent shape and symmetry between the right and left breast. Attention was then paid toward the closure of the right and left side. Bilaterally, the lateral edge of the mastectomy wound is re-created, using a series of interrupted 2-0 Vicryl sutures to create better projection. The lateral edge of the flaps are secured to the chest wall and folded upon themselves. Excess tissue is resected. The mastectomy weights were roughly 900 gm. The flaps were 1400 gm. 500 gm were removed from each of the flaps, and zone 2 of the flaps, preserving the superficial and inferior epigastric artery and vein. The placement of the skin paddle is marked. The flap is de-epithelialized with the exception of the skin paddle. The skin of the mastectomy wound is trimmed to have a vertical mastopexy type of closure, trimming any of the free edges of the mastectomy wound. Good bright red bleeding is seen through the edges of the mastectomy skin. The inferior vertical limb is closed to itself, leaving space for the Doppler wire to be brought out through the inferior-most aspect of the incision. The Doppler wire is secured using the securing plastic device on the chest wall. Size 19 round Amari drains were brought out through lateral stab wound incisions, secured with 3-0 silk drain sutures. The drain is placed away from the pedicle anastomosis. The flap is then inset with Steri-Strips and buried subcuticular 3-0 Monocryl suture around the skin paddle following by running subcuticular 3-0 Monocryl suture, the vertical limbs of the skin are closed with Steri-Strips and buried 3-0 Monocryl suture followed by a running subcuticular 3-0 Monocryl suture. The inset is performed identically, both on the right and left. Attention was then directed toward closure of the abdomen. On the right and left side prior to closure, an intercostal nerve block was performed using 0.25% Marcaine. 15 mL of 25% Marcaine was used on the left, and 15 mL was used on the right, injecting a small amount of Marcaine adjacent to the intercostal nerve root space 2 through 7 in order to provide postoperative pain relief. Prior to closure of the abdomen, bilateral transversus abdominis nerve blocks were performed using 0.25% Marcaine. 15 mL of Marcaine were introduced through multiple injections of the transverse abdominis plane on the left and right side in order to provide postoperative pain relief. Closure of the abdomen was then performed, first of the anterior rectus fascia including both anterior and posterior layers of the anterior rectus abdominis fascia. The anterior rectus fascia were approximated using a 0 PDS suture in a figure-of-8 fashion with 1 suture placed every centimeter, approximating the fascia. This was overrun with a 0, V-Loc PDS suture in multiple layers in order to apply gate and strength in the closure in the epigastric area. There was noted prior to closure to be a small abdominal midline hernia. For this, the general surgeon, Dr. Trey Al is called into the operating room to perform an incidental hernia repair. That portion of the procedure is to be dictated separately by Dr. Al. After completion of the repair of the abdominal hernia, the remainder of the abdominal wound incision is able to be closed. A subcutaneous flap was then advanced in the inferior direction. A low transverse incision was then closed in multiple layers using 0 PDS as the first layer, 3-0 V-Loc as the running final subcuticular closure. The umbilicus was then brought up and out through and inverted V-shape incision, insetting using a 4-0 Monocryl suture. After closure, all the incisions were dressed with Steri-Strips sterilely. No additional dressings were applied. The patient was awoken from anesthesia in a flexed position, having tolerated the procedure well and transferred to recovery without complication. Good flow signals, flap color were able to be identified both in the operating room and the postoperative recovery radha. The patient tolerated the procedure well. Charlene [id number]
--- NOTE | 2016-10-13 16:20 | PATH ---
Surgical Pathology Report Patient Name: DAVID ARROYO [facility]. Rec. #: [id number] /Age/Gender: 1965 (Age: 51) / F Account: [id number] Location: 4 SO PEDS/ADOL Taken: 10/08/2016 Received: 10/08/2016 Reported: 10/13/2016 Physicians: Charlene Valdez Specimen(s) Received A: RIGHT AXILLARY SENTINEL LYMPH NODE B: RIGHT AXILLARY LYMPH NODE C: LEFT BREAST, MASTECTOMY D: RIGHT BREAST, MASTECTOMY E: HERNIA SAC & FAT Clinical History Right breast cancer Intraoperative Consult Diagnosis A. Right axillary lymph node, touch prep and frozen section: One lymph node, negative for carcinoma. Dr. Bell, 10/08/16. Final Diagnosis A. SENTINEL LYMPH NODE, RIGHT AXILLARY, BIOPSY: ONE LYMPH NODE NEGATIVE FOR METASTATIC CARCINOMA BY H&E STAIN (0/1). B. LYMPH NODE, RIGHT AXILLARY, LYMPHADENECTOMY: FOUR LYMPH NODES NEGATIVE FOR METASTATIC CARCINOMA (0/4). C. BREAST, LEFT, MASTECTOMY: FIBROCYSTIC CHANGE WITH DUCT DILATATION, FOCAL ADENOSIS AND STROMAL FIBROSIS. BENIGN NIPPLE AND SKIN. Comment: Immunohistochemical stain for p63 and SMM-HC performed and interpreted at [facility] on block C12 show preserved myoepithelial cells supporting the interpretation above. D. BREAST, RIGHT, MASTECTOMY: DUCTAL CARCINOMA IN SITU (DCIS), INTERMEDIATE NUCLEAR GRADE, APOCRINE, MICROPAPILLARY TYPE, WITH CENTRAL NECROSIS, CALCIFICATIONS AND PERIDUCTAL SCLEROSIS, PRESENT ON ONE SLIDE (SEE COMMENT). SURGICAL RESECTION MARGINS: NEGATIVE FOR DCIS; DCIS IS MORE THAN 1 CM AWAY FROM THE DEEP AND ANTERIOR SOFT TISSUE MARGINS. NIPPLE: NOT INVOLVED BY DCIS; BENIGN SKIN. EXTENSIVE PRIOR SURGICAL SITE CHANGES. SURROUNDING BREAST TISSUE: FIBROCYSTIC CHANGE WITH ADENOSIS, DUCT DILATATION, CYST FORMATION STROMAL FIBROSIS WITH ASSOCIATED MICROCALCIFICATIONS. Comment: Prior excision and re-excision specimens (D17-416 and D17-504) showed ductal carcinoma in situ (DCIS), intermediate nuclear grade, extending to the initial resection margins and into some of the margins in the re-excision specimen. The current specimen shows focal DCIS with similar morphology. The sampled lymph nodes are negative. Refer to D17-416 for the receptor studies. Immunohistochemical stain for p63 and SMM-HC performed and interpreted at [facility] on block D14 show preserved myoepithelial cells supporting the interpretation above. E. HERNIA SAC AND FAT: BENIGN FIBROMEMBRANOUS TISSUE AND BENIGN FATTY TISSUE. Electronically Signed Wily Bell M.D. Gross Description A. Received fresh, labeled "right axillary lymph node" is a 2.1 x 1.5 x 1.2 cm fragment of evans-yellow fibrofatty tissue, which is dissected to reveal a 1.7 x 0.8 x 0.5 cm evans-red lymph node. The lymph node is bisected, one touch prep and one frozen section are performed. The frozen section residue is submitted entirely in one cassette. B. Received in formalin labeled "axillary lymph node (right)" are 4 evans lymph nodes ranging from 0.5-2.5 cm in greatest dimension. The specimens are entirely submitted in 2 cassettes as follows: 1-three whole lymph nodes, 2-one whole lymph node. C. Received in formalin, labeled "left breast 1133 g" is a 20.0 x 16.5 x 6.0 cm left mastectomy specimen with a short suture marking the superior aspect and a long suture marking the lateral aspect of the specimen, per the surgeon. The anterior surface displays a 5.4 x 3.0 cm evans, ovoid portion of skin with a 1.1 cm in diameter nipple. The deep margin is inked black and the anterior soft tissue margin is inked blue. The specimen is serially sectioned from medial to lateral. Sectioning reveals multiple foci of white fibrous tissue. No definitive masses are identified. Service Control Operator sections are submitted in 14 cassettes as follows: 1-serially sectioned nipple; 2-subareolar shave; 3-4-upper outer quadrant; 5-8-sfrul-outer quadrant; 8-9-upper inner quadrant; 10-11-lower inner quadrant; 12-retroareolar tissue; 13-skin and the anterior soft tissue margin; 14-deep margin. Time to fixation: not indicated Total formalin fixation time: ~ 24 hours D. Received in formalin, labeled "right breast 666 g" is a 16.5 x 15.0 x 6.0 cm right mastectomy specimen with a short suture marking the superior aspect and a long suture marking the lateral aspect of the specimen, per the surgeon. The anterior surface displays an exposed fibrous capsule in the upper outer quadrant (UOQ) The anterior surface displays a 3.9 x 2.9 cm evans, ovoid portion of skin with a 1.2 cm in diameter nipple. The deep margin is inked black and the anterior soft tissue margin is inked blue. The specimen is serially sectioned from lateral to medial. Sectioning reveals a previous biopsy cavity, contiguous with the fibrous capsule, in the UOQ focally abutting the anterior soft tissue margin. The breast displays multifocal white fibrous tissue. No definitive masses are identified. Service Control Operator sections are submitted in 20 cassettes as follows: 1-serially sectioned nipple; 2-subareolar shave; 3-8-UOQ previous biopsy cavity with surrounding fibrous tissue; 9-additional uninvolved UOQ tissue; 10-12-lower outer quadrant; 13-14-upper inner quadrant; 15-16-lower inner quadrant; 66-84-fduqynayddxq tissue; 19-skin and anterior soft tissue margin; 20-deep margin. Time to fixation: not indicated Total formalin fixation time: ~24 hours E. Received in formalin labeled "hernia sac and fat" is a 7.5 x 7.0 x 2.5 cm aggregate of yellow, lobulated adipose tissue with attached fibromembranous tissue. No masses are identified. Service Control Operator sections are submitted in one cassette. AF/10/08/2016 final/10/08/2016
--- NOTE | 2016-10-17 12:59 | OP ---
DATE OF OPERATION: 10/08/2016 PREOPERATIVE DIAGNOSIS: Right breast ductal carcinoma in situ. POSTOPERATIVE DIAGNOSIS: Right breast ductal carcinoma in situ. PROCEDURE: Bilateral total mastectomies, right sentinel node biopsy, deep inferior epigastric automatic steel tie adjuster (MARIA FERNANDA) flap reconstruction. SURGEONS: Courtney Quan MD and Rian metzger MD ENVIRONMENTAL EMERGENCIES ASSISTANT: TAVO Vasquez ANESTHESIOLOGIST: . SPECIMENS: 1. Avalon node. 2. Right breast. 3. Left breast. 4. Axillary nodes FINDINGS: See procedure. INDICATIONS FOR PROCEDURE: The patient is a 51-year-old white female who had a routine mammogram in June 2015 which showed right breast asymmetry. Follow- up was recommended. Ultrasound in June 2016 showed a mass which was biopsied and showed atypia. She underwent wide excision on July 18, 2016. Pathology showed DCIS with multiple positive margins. The margins were still close or positive after reexcision on August 07, 2016. She was recommended right mastectomy and elected to undergo a bilateral mastectomy with immediate reconstruction using a MARIA FERNANDA flap. PROCEDURE: The patient was first taken to Nuclear Medicine, where she underwent injection of the technetium for the sentinel node procedure. She was then taken to Ambulatory Surgery, where informed consent was obtained. She was taken to the operating room and placed on the operating table in the supine position. Sequential compression devices were placed on both legs. She received antibiotics prior to surgery. Both breasts were prepped and draped in the usual fashion. General anesthesia was initiated. The right sentinel node biopsy was performed first. The skin was injected with isosulfan blue and the right breast was massaged for several minutes to allow passage of the dye. Examination of the axilla showed an area of high count. An incision was made over this area and deepened until the axillary fat pad was encountered. Dissection in this region identified 1 node which showed high counts and this was sent to Pathology for frozen section. Frozen section showed no evidence of metastatic disease. During the dissection, additional lymph nodes were removed that did not show high counts or the blue color and these were sent as a separate specimen. The right mastectomy was performed by making an incision around the nipple areolar complex and extending it inferiorly along the 6 o'clock axis. The incision was deepened using electrocautery. Skin flaps were then raised superiorly towards the clavicle, medially towards the sternal border, and inferiorly towards the junction with the abdominal musculature. The flap continued laterally towards the axilla. The breast was removed along with the underlying pectoralis major fascia. The left mastectomy was performed in a similar fashion by Dr. Meyer. A circumareolar incision was made and extended inferiorly along the 6 o'clock axis. Skin flaps were raised towards the clavicle, sternal border, abdominal musculature, and axilla. The breast was removed along with the underlying pectoralis major fascia. Both specimens were sent to Pathology in formalin. The reconstruction then continued with Drs. Yu and Jeff. Dr. Yu will dictate the reconstructive procedure. He will also dictate the closure of the incisions and placement of the brains. At the end of my portion of the procedure, the patient had been stable throughout the procedure and all sponge, lap, and instrument counts were correct. COURTNEY QUAN M.D. [id number] MTDD
== END 2016-10-11 14:00 | disposition home or self-care (01) | DRG 580 ==
LOC: JSAMEDAYSX 10-08 06:08 → EDSTATUS 10-08 09:00 → JICU 10-08 21:10 → J4S 10-09 17:13
PROVIDERS: ADMIT Plastic Surgery; ATTEND Plastic Surgery
PROC: 0PB10ZZ Excision of 1 to 2 Ribs, Open Approach (ICD-10-PCS; 2016-10-08)
PROC: 0WQF0ZZ Repair Abdominal Wall, Open Approach (ICD-10-PCS; 2016-10-08)
PROC: 0HTV0ZZ Resection of Bilateral Breast, Open Approach (ICD-10-PCS; principal; 2016-10-08 08:00)
PROC: 07B60ZX Excision of Left Axillary Lymphatic, Open Approach, Diagnostic (ICD-10-PCS; 2016-10-08 08:00)
PROC: 0HRV077 Replacement of Bilateral Breast using Deep Inferior Epigastric Artery Perforator Flap, Open Approach (ICD-10-PCS; 2016-10-08 08:00)
PROC: 0PB20ZZ Excision of 3 or More Ribs, Open Approach (ICD-10-PCS; 2016-10-08 08:00)
DX: D05.11 Intraductal carcinoma in situ of right breast (principal); K43.6 Other and unspecified ventral hernia with obstruction, without gangrene; Z87.891 Personal history of nicotine dependence; F41.9 Anxiety disorder, unspecified; R00.0 Tachycardia, unspecified
CPT/HCPCS: 36415; 78195-TC; 80048; 85027; 88302-TC; 88307-TC; 88331-TC; 88341-TC; 94010; 94760; A9541; J1644

== ENCOUNTER 2016-11-28 06:20 | Day surgery (SDC) | payer BC ==
[2016-11-28 07:25] VITALS: BMI 31.8
[2016-11-28] MEDS ORDERED: MINERAL OIL 25 ML OIL ONE (08:55)
[2016-11-28] MEDS ORDERED: oxyCODONE HCL 5 MG TABLET PO PRN ×2 (13:41)
[2016-11-28] MEDS ORDERED: ONDANSETRON 4 MG/2 ML VIAL IVPB PRN (13:41)
[2016-11-28] MEDS ORDERED: LACTATED RINGERS SOLUTION 1,000 ML IV SCH (13:45)
[2016-11-28] MEDS: PROMETHAZINE HCL 25 MG/1 ML VIAL ONE ×2 (14:05→14:22)
[2016-11-28] MEDS ORDERED: PROMETHAZINE HCL 25 MG/1 ML VIAL IVPUSH PRN (14:29)
--- NOTE | 2016-11-28 14:49 | SURG ---
Surgery Curriculum Counselor Note Curriculum Counselor: Britton Vega PA-C Date of Service: 11/28/16 Diagnosis: Breast Cancer Procedure: Bilateral revision of breast reconstruction and revision of abdominal scar I was present for the entirety of the operative procedure. For further detail, please refer to operative report. Visit type - Case Type Case Type: Scheduled Admission - New patient This patient is new to me today: Yes Date on this admission: 11/28/16
[2016-11-28 15:48] VITALS: TEMP 98
[2016-11-28] MEDS ORDERED: oxyCODONE HCL 5 MG TABLET ONE (16:02)
[2016-11-28 16:51] VITALS: BP 124/75; PULSE 87
--- NOTE | 2016-11-28 17:48 | CONS ---
INTRAOPERATIVE CONSULTATION AND OPERATIVE NOTE DATE OF INTRAOPERATIVE CONSULTATION AND PROCEDURE: 11/28/2016 REASON FOR INTRAOPERATIVE CONSULTATION AND PROCEDURE: A possible left inguinal hernia noted at the time of scar revision from previous TRAM flap surgery. REQUESTING PHYSICIAN: Michael Yu MD BRIEF HISTORY: This is a 51-year-old female who previously had history of breast cancer, underwent mastectomy with abdominal flap reconstruction. She presents now for scar revision. During her procedure, she was noted to have a defect in the left lower abdominal wall, and an intraoperative consultation for possible hernia was requested. PAST MEDICAL HISTORY: Unavailable to me at the time of the consultation. She is already prepped and draped. REVIEW OF SYSTEMS: Unobtainable to me. Upon entering the operative field, the patient is noted to have a fat protruding from her external ring and a possible small left inguinal hernia. At this point, we will perform a primary repair of the left inguinal hernia, and the rest of the operation per Dr. Yu of Plastic Surgery. PROCEDURE: Primary repair of left inguinal hernia. SURGEON: Mansoor Ambrocio DO CONDUIT WORKER: Michael Yu MD ANESTHESIA: General. PREOPERATIVE DIAGNOSIS: Left inguinal hernia. POSTOPERATIVE DIAGNOSIS: Left inguinal hernia. SPECIMEN: None. BLOOD LOSS: Minimal. COMPLICATIONS: None. DRAINS: None. IMPLANTS FOR MY PORTION OF THE PROCEDURE: None. Also of note, the patient had a seroma drainage during this procedure as well. DESCRIPTION OF PROCEDURE: The patient was in the supine position, already under general anesthesia. A large incision had been made transversely by Dr. Yu. The subcutaneous fat was dissected off the abdominal wall, exposing the anterior rectus fascia. The inguinal ligament and the external ring were easily identified at the time of my proceeding. The patient was noted to have the round ligament exiting from the external ring with a fat emanating from inside the ring. Finger palpation was done through the canal toward the internal ring which was felt to be secure. It was likely that this fat was preperitoneal fat. However, with it extruding, it could potentially lead to a future hernia by serving as a lead point. Consideration was made toward opening the external oblique fascia and de-kiah the inguinal canal, but the patient had an adequate scar plate above this from her previous surgery, and it was felt that this would likely interfere with her abdominal contour and might increase the risk of future incisional hernia. Since this hernia was asymptomatic and only noted at the time of surgery and since it was possible that it was actually simply a cord lipoma, decision was made not to open the external oblique fascia and weaken the abdominal wall. It was felt that patient may one day develop recurrence at this site or a new hernia at this site, and that would best be dealt in a primary fashion. At this point, the round ligament was disconnected from its input in the pubis. It was then ligated near the internal ring, divided, and discarded. The external ring was then closed with interrupted 0 Prolene sutures. At this point, my portion of the operation terminated. Dr. Yu finished closure which will be dictated separately. After the left inguinal hernia was addressed, the right external ring was palpated, and it was felt to have no clinical hernia. Blood loss: Minimal. Drains from my part of the procedure: None. Complications: None. The patient's disposition was to finish her plastics portion of the procedure with Dr. Yu. Also note: Consideration was made to again doing a primary repair with mesh, but also, it was felt not a good idea to use mesh at this time as the patient may have contamination from her seroma. DO HARITHA MCNEIL/[id number]
--- NOTE | 2016-12-01 10:03 | OP ---
DATE OF OPERATION: 11/28/2016 PROCEDURE: 1. Bilateral revision of reconstructed breasts. 2. Debridement of open wound on left breast and debridement of seroma cavity of abdominal wound. 3. Evacuation of seroma on abdominal wound. 4. Re-elevation of abdominoplasty flap for correction of deformity to the donor site for the patient's bilateral breast reconstruction with re-insetting of abdominal flap after re-advancing. ATTENDING SURGEON: Michael Yu MD SURVEILLANCE SPECIALIST: TAVO Han The procedure also required an intraoperative consultation from Dr. Mansoor Ambrocio who was called in to repair incidental inguinal hernia found in the left anterior groin. DESCRIPTION OF PROCEDURE: The patient is seen in the holding area, counseled on all risks, benefits, and alternatives of the procedure. Understands and agrees to proceed. She is marked with the left side skin paddle to the site of the bilateral nipples. The Weller-type pattern skin revision is planned for the right reconstructed breast, and a modified vertical pattern is planned for the left reconstructed breast. The patient is also planned for a revision of a deformity of the abdominal donor site closure. All tissues were marked. The patient understands, agrees to proceed, and was brought to the operating room and placed in a supine position. A gram of Ancef was given preoperatively. Sequential compression stockings are applied. A Jarvis catheter was placed. This was removed at the end of the procedure. She is prepped and draped in a standard surgical fashion. A time-out is called. Patient, procedure site, sides are verified. Attention was first directed towards the large right reconstructed breast where Weller-type pattern reduction incisions are planned. The mastectomy flaps were re-elevated superiorly, laterally, and medially. Skin within these flaps is excised with the exception of the existing skin pouch. Parts of the deep flap inferiorly are excised. A seroma cavity is entered, which was evacuated. A dissection of the mastectomy flap superiorly to a hollow in the superolateral tail in the breast was then performed. The flap is mobilized and secured superolaterally with a series of 0 Vicryl sutures to the pectoralis fascia correcting this deformity. The skin paddle was then re-inset into a new keyhole pattern within the mastectomy skin. A size 10 flap J-P drain is brought out through a lateral stab wound incision, and the inverted T point is closed after skin modification with a half-buried mattress 2-0 nylon suture. Vertical and horizontal limbs were closed with a series of interrupted buried deep dermal 3-0 Monocryl suture followed by a running subcuticular 3-0 Monocryl suture. The skin paddle was then set into the keyhole with a series of interrupted buried deep dermal 3-0 Monocryl suture followed by running subcuticular 3-0 Monocryl suture. Drain was placed to bulb suction. It should be noted that the total weight of resected flap on the right breast is 383 g. With the patient in a seated and upright position, it is determined that this is equal in volume to the left breast. Attention was then directed towards the left reconstructed breast where the initial effort to correct a deformity of the laterally inset skin paddle is then performed. However, full correction of this by excision of the depressed lateral portion of the skin paddle requires mobilization of the flap. From a lateral skin flap, the lateral mastectomy flap is re-elevated. Hemostasis is achieved. Re-insetting the skin paddle created distortion, however, unless the remainder of the skin paddle is freed from its surrounding mastectomy skin inset, this is then done, and the deep flap is slightly rotated and mobilized to re-inset into the skin paddle without distortion. In doing this, it is able to be determined that the inferior pole wound that was pre-existing on the breast is able to be closed primarily without the need for a skin graft as had been discussed with the patient. The wound is debrided in its entirety in preparation for closure. The skin edges are freshened with a face life scissor, and a closure is then performed along the pre-existing vertical incision with a series of interrupted buried deep dermal 3-0 Monocryl suture followed by running subcuticular 3-0 Monocryl sutures. Skin viability is assured through this process. The skin paddle is then re-inset into a keyhole, which is slightly modified to accommodate the skin paddle without any distortion. This is done with a series of interrupted buried deep dermal 3-0 Monocryl sutures followed by running subcuticular 3-0 Monocryl suture. Attention was then directed toward the donor site abdominal scar, which has a persistent, slight, nonhealing area. This, along with distortion of the donor site, is excised in its entirety down to the level of a persistent seroma cavity in the abdominal donor site. The cavity is evacuated of all serous fluid. The seroma cavity is partially debrided for fresh edges for closure. It is identified that a possible hernia is found in the inferior most portion of the left side of the abdominal wall. Because of this, a general surgeon consult is brought in. Dr. Mansoor Ambrocio scrubbed in as an intraoperative consult. His evaluation determines that this is an inguinal hernia on the left side that is not a part of the ventral fascial incision. It is an unrelated finding; however, his repair of the incidental hernia is dictated separately. After his completion of this, the wound was copiously irrigated with normal saline. A series of quilting sutures were placed between the anterior skin flap and the posterior fascia. This was done with a series of 0 PDS suture to obliterate the existing space. A size 10 flat J-P drain was brought out through the lateral extent of the excision and secured with a 3-0 silk drain suture as was the drain in the right breast. Closure of the abdominal flap is then performed first by re-advancing the abdominal flap to the pubic skin. It is secured with the superficial fascial system Jose layer sutures with buried 2-0 Vicryl suture followed by a series of interrupted buried deep dermal 3-0 suture followed by a running subcuticular 3-0 Monocryl suture. All wounds were dressed with Steri-Strips, ABD gauze. An abdominal binder is applied, and a surgical bra is applied. The patient is awoken from anesthesia and transferred to recovery without complication. Jarvis catheter is removed at the end of the procedure. Charlene [id number]
--- NOTE | 2016-12-02 14:16 | PATH ---
Surgical Pathology Report Patient Name: DAVID ARROYO [facility]. Rec. #: [id number] /Age/Gender: 1965 (Age: 51) / F Account: [id number] Location: [facility] [place] [facility] Taken: 11/28/2016 Received: 11/28/2016 Reported: 12/02/2016 Physicians: Michael Yu Specimen(s) Received A: RIGHT BREAST SKIN AND TISSUE B: LEFT BREAST SKIN AND TISSUE C: ABDOMINAL SKIN AND TISSUE Clinical History History of breast cancer Bilateral revision of breast reconstruction Final Diagnosis A. SKIN AND TISSUE, RIGHT BREAST: BENIGN SKIN AND FIBROFATTY TISSUE WITH EXTENSIVE PRIOR SURGICAL SITE CHANGES. B. SKIN AND TISSUE, LEFT BREAST: BENIGN SKIN AND FIBROFATTY TISSUE THERE WITH EXTENSIVE PRIOR SURGICAL SITE CHANGES. C. SKIN TISSUE, ABDOMEN: BENIGN SKIN AND UNDERLYING FATTY TISSUE WITH PRIOR SURGICAL SITE CHANGES. Electronically Signed Wily Bell M.D. Gross Description A. Residual formalin, labeled "right breast skin and tissue" is 420 gm, 18 x 11 x 8 cm in aggregate size and multiple fragments of evans skin and evans-yellow fibrofatty tissue. Sectioning reveals evans-yellow fatty tissue with focal evans-white areas of fat necrosis. Hop Sorter sections are submitted in three cassettes. B. Received in formalin, labeled "left breast skin and tissue" is 55 g, and bite 6 x 1.8 cm multiple fragments of evans skin and evans-yellow fibrofatty tissue. Sectioning reveals evans-yellow fatty tissue. Hop Sorter sections are submitted in two cassettes. C. Received in formalin, labeled "abdominal skin and tissue" and multiple fragments of evans skin and yellow fatty tissue with the largest fragment measuring 19 x 1.5 x 1.5 cm. The largest fragment demonstrates suture material. Hop Sorter sections are submitted in one cassette. AF/12/01/2016 final/12/01/2016
== END 2016-11-28 16:50 | disposition home or self-care (01) ==
LOC: FASU 06:20
PROVIDERS: ATTEND Plastic Surgery
PROC: 0HRV37Z Replacement of Bilateral Breast with Autologous Tissue Substitute, Percutaneous Approach (ICD-10-PCS; principal; 2016-11-28 08:56)
PROC: 0HR5X74 Replacement of Chest Skin with Autologous Tissue Substitute, Partial Thickness, External Approach (ICD-10-PCS; 2016-11-28 08:56)
PROC: 0YQ60ZZ Repair Left Inguinal Region, Open Approach (ICD-10-PCS; 2016-11-28 08:56)
DX: Z85.3 Personal history of malignant neoplasm of breast (principal); K40.90 Unilateral inguinal hernia, without obstruction or gangrene, not specified as recurrent; L90.5 Scar conditions and fibrosis of skin
CPT/HCPCS: 74000-TC; 88304-TC; 94760

== ENCOUNTER 2017-05-27 11:36 | Day surgery (SDC) | payer BC ==
[2017-05-26 14:21] VITALS: BMI 32.9
[2017-05-27] MEDS ORDERED: PROPOFOL 20 ML ONE (13:43)
[2017-05-27] MEDS ORDERED: MIDAZOLAM HCL 2 MG/2 ML SINGLE DOSE VIAL ONE (13:43)
[2017-05-27] MEDS ORDERED: PROMETHAZINE HCL 25 MG/1 ML VIAL IVPB PRN (13:49)
[2017-05-27] MEDS ORDERED: ONDANSETRON 4 MG/2 ML VIAL IVPUSH PRN (13:49)
[2017-05-27] MEDS ORDERED: LIDOCAINE HCL/PF 2% SDV 5ML VIAL ONE (13:57)
[2017-05-27] MEDS ORDERED: LIDOCAINE 1%/EPI 1:100000 (20 ML MULTI DOSE VIAL) ONE (14:00)
[2017-05-27] MEDS ORDERED: LACTATED RINGERS SOLUTION 1,000 ML IV SCH ×2 (14:00→15:45)
[2017-05-27] MEDS ORDERED: ceFAZolin SODIUM 1 GM VIAL ONE (14:02)
[2017-05-27] MEDS ORDERED: SODIUM CHLORIDE 0.9% P/F 10 ML VIAL IJ ONE (14:02)
[2017-05-27] MEDS ORDERED: ceFAZolin SODIUM 1 GM VIAL IVPB ONE (14:04)
[2017-05-27] MEDS ORDERED: DEXAMETHASONE SOD PHOSPHATE 4 MG/1 ML VIAL ONE (14:05)
[2017-05-27] MEDS ORDERED: LIDOCAINE 1%/EPI 1:100000 (20 ML MULTI DOSE VIAL) INF ONE (14:20)
[2017-05-27] MEDS ORDERED: KETOROLAC TROMETHAMINE 30 MG/1 ML VIAL ONE (15:07)
[2017-05-27] MEDS ORDERED: oxyCODONE HCL 5 MG TABLET PO PRN ×2 (15:37)
[2017-05-27] MEDS ORDERED: ONDANSETRON 4 MG/2 ML VIAL IVPB PRN (15:37)
--- NOTE | 2017-05-27 15:43 | OP ---
Operative Note - Note: Operative Date: 05/27/17 Pre-Operative Diagnosis: deformity right breast reconstruction with bilateral absence of nipples Operation: bilateral nipple reconstruction, revision of right breast Surgeon: Michael Yu Anesthesia: General
[2017-05-27 17:55] VITALS: TEMP 98
[2017-05-27 18:10] VITALS: BP 128/70; PULSE 70
--- NOTE | 2017-05-28 01:42 | OP ---
DATE OF OPERATION: 05/27/2017 PROCEDURE: 1. Right-sided revision deep flap breast reconstruction. 2. Bilateral nipple areolar reconstruction using modified skate flaps. SURGEON: Nils Art MD ACTIVATED SLUDGE OPERATOR: None. ANESTHESIA: General endotracheal anesthesia with a total of 20 mL of 1% lidocaine with 1:100,000 epinephrine injected into the perioperative tissues. 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 DESCRIPTION OF PROCEDURE: The patient is marked in the holding area, awake and aware of all incisions and resulting scars. The decision is made to not address a small area of fat necrosis on the left breast, which is not currently symptomatic for the patient. The nipples are sited at 26 cm from the sternal notch bilaterally, centrally within the skin piles within the deep flap areolar tissue. The patient is brought to the operating room. She is prepped and draped in the standard surgical fashion. After anesthesia was given, the perioperative tissues were injected with local anesthesia. Local anesthetic is 1% lidocaine with 1:100,000 epinephrine. At this point, the patient is prepped and draped in the standard surgical fashion. A timeout was called. The patient, procedure, site, and sides were verified. Attention was first directed towards the left reconstructed breast where a superiorly-based skate flap pattern is incised and elevated within the fibrofatty tissue. The skin is inset to itself and turned to create a cylindrical nipple areola with interrupted 4-0 nylon sutures. The perimeter of the areola is the lateral and medial borders of the skate flaps. The donor sites were closed with a series of interrupted buried deep dermal 4-0 Monocryl suture followed by a running 4-0 nylon suture. Attention was then directed towards the contralateral right side where a mirror image procedure was performed. Bilateral nipple reconstructions are thus performed. An incision was then made in the right axillary tail of the breast, directly over the existing incision for the right-sided lymph node surgery. Through this, the mastectomy flap was reelevated on the superolateral portion of the breast to expose an area of fat necrosis on the superior lateral portion of the deep flap reconstruction. This is dissected from the surrounding tissue and is dissected from the pectoralis major muscle fascia. This was dissected from the superior mastectomy flap. This leaves an area of defect within the lateral portion of the breast reconstruction and to compensate for this, local fat flaps are elevated. This is undermined and mobilized from the axillary tissue and advanced into the defect. The mobilized fat flaps are secured with a series of interrupted 3-0 Monocryl suture. Hemostasis was meticulously achieved. The wound was irrigated. This recreates a lateral mammary fold of the reconstructed breast. The skin was then closed with a series of interrupted buried deep dermal 4-0 Monocryl suture followed by a running subcuticular 4-0 Monocryl suture. The skin is dressed with Steri-Strips, 4 x 4 gauze, and Hypafix tape. The nipple areolas are dressed with bacitracin, Xeroform, 4 x 4 gauze, and Hypafix tape. The patient tolerated the procedure well. Surgical bra was applied. She was awoken from anesthesia and transferred to the recovery room without complication. NILS ART M.D. [id number]
--- NOTE | 2017-05-29 12:45 | PATH ---
Surgical Pathology Report Patient Name: DAVID ARROYO [facility]. Rec. #: [id number] /Age/Gender: 1965 (Age: 52) / F Account: [id number] Location: [facility] Taken: 05/27/2017 Received: 05/28/2017 Reported: 05/29/2017 Physicians: Michael Yu Specimen(s) Received TISSUE FROM RIGHT BREAST RECONSTRUCTION Clinical History Breast cancer Final Diagnosis BREAST, RIGHT, TISSUE FROM RECONSTRUCTION, EXCISION: FIBROADIPOSE TISSUE WITH DENSE FIBROSIS, HISTIOCYTIC AND MULTINUCLEATED GIANT CELL INFILTRATE CONSISTENT WITH FAT NECROSIS. No breast tissue identified. Electronically Signed Vida Bergman M.D. Gross Description Received in formalin labeled "tissue from right breast reconstruction," is a 6.5 x 4.0 x 2.6 cm irregular, unoriented portion of fibroadipose tissue. There is no skin present. Sectioning reveals diffuse, focally firm fat necrosis. Subacute Nurse sections are submitted in one cassette. /05/28/2017 saudi05/28/2017
== END 2017-05-27 18:13 | disposition home or self-care (01) ==
LOC: JASU-SURG 11:36
PROVIDERS: ATTEND Plastic Surgery
PROC: 0HSWXZZ Reposition Right Nipple, External Approach (ICD-10-PCS; 2017-05-27)
PROC: 0HST0ZZ Reposition Right Breast, Open Approach (ICD-10-PCS; principal; 2017-05-27 13:00)
DX: Z90.13 Acquired absence of bilateral breasts and nipples (principal); C50.919 Malignant neoplasm of unspecified site of unspecified female breast
CPT/HCPCS: 88305-TC; 94760

== ENCOUNTER → 2018-01-01 | Day surgery (SDC) | payer BC ==
--- NOTE | 2018-01-01 21:16 | OP ---
DATE OF OPERATION: 01/01/2018 PREOPERATIVE DIAGNOSIS: Left breast/chest wall mass at 11 o'clock, 10 cm from the nipple. POSTOPERATIVE DIAGNOSIS: Left breast/chest wall mass at 11 o'clock, 10 cm from the nipple. PROCEDURE: Left ultrasound-guided core biopsy with clip placement. ANESTHESIA: Local. ATTENDING SURGEON: Rian Meyer MD ESTIMATED BLOOD LOSS: Minimal. COMPLICATIONS: None. DESCRIPTION OF PROCEDURE: Patient was made aware of the risks and benefits of the procedure and consented. She was placed in a supine position. Under sterile conditions with 1% lidocaine for local anesthesia, a small sadia was made in the skin. A 13-gauge suction biopsy device via inferolateral approach was used. Under ultrasound guidance, multiple cores were obtained and submitted to Pathology. Likewise, under ultrasound guidance, a U-shaped clip was placed into the biopsy region. Well tolerated by patient. Steri-Strips and a sterile bandage were applied. We will contact her with results. RIAN MEYER M.D. [id number]
--- NOTE | 2018-01-04 13:28 | PATH ---
Surgical Pathology Report Patient Name: DAVID ARROYO [facility]. Rec. #: [id number] /Age/Gender: 1965 (Age: 52) / F Account: [id number] Location: [facility] Taken: 01/01/2018 Received: 01/01/2018 Reported: 01/04/2018 Physicians: Charlene Vadlez M.D. Specimen(s) Received LEFT BREAST 11:00 10 CM FN CORE BIOPSY Clinical History Status post MTX Final Diagnosis BREAST, LEFT, 11:00, 10 CM FN, CORE BIOPSY: FIBROADIPOSE TISSUE SHOWING DENSE FIBROSIS AND FAT NECROSIS WITH ASSOCIATED CALCIFICATIONS. NEGATIVE FOR MALIGNANCY. Electronically Signed Leslye Salas M.D. Gross Description Received in formalin labeled "left breast biopsy 11:00, 10 cm fn," is a 1.7 x 1.4 x 0.2 cm aggregate of multiple evans-yellow, irregular to cylindrical portions of fibroadipose tissue. The formalin is filtered and the specimen is entirely submitted in one cassette. Time to formalin fixation: < 1 minute Total formalin fixation time: Approximately 9 hours. /01/01/2018 saudi/01/01/2018
== END | disposition home or self-care (01) ==
LOC: FRADUS-SUR 13:10
PROVIDERS: ATTEND Surgery
PROC: 0HBU3ZX Excision of Left Breast, Percutaneous Approach, Diagnostic (ICD-10-PCS; principal; 2018-01-01)
DX: N64.1 Fat necrosis of breast (principal); N63.22 Unspecified lump in the left breast, upper inner quadrant
CPT/HCPCS: 19083; 87899; 88305-TC; A4648